=== PATIENT | male | born 1970 | race Caucasian/White ===

== ENCOUNTER 2021-11-07 11:20 | Inpatient (IN) ==
[2021-11-07] MEDS ORDERED: SODIUM CHLORIDE 0.9% 1000ML 1,000 ML IV SCH (12:15)
--- NOTE | 2021-11-07 12:18 | Emergency Department Note ---
History of Present Illness General Chief complaint: Leg Weakness, Bilateral Stated complaint: LEG WEAKNESS, FALL Time Seen by Provider: 11/07/21 12:02 History of Present Illness This is a 51-year-old male that presents to the emergency department via private vehicle with complaints of "leg weakness, fall". Patient notes a history of COPD, hypertension. The patient states that he recently returned from a trip to [place]. He notes that he then returned to work this past Wednesday. He states that he was quite active while at work and it was quite hot outside. He notes that he felt sore after finishing work. Then the next morning which was this past he felt very sore in his muscles. He was able to return to work yesterday and notes that he continued with soreness. He notes that he continued with also feeling some muscle weakness but more secondary to the soreness. Then today he returned to work and felt increasingly sore compared to yesterday and states that he even had difficulty ascending a simple step. He states that he fell while doing this and had trouble standing as he felt very weak overall. He denies any unilateral component to this. He notes that both arms and both legs feel quite weak. When he fell he also struck his head. He denies any speech trouble. No recent illness. No fevers. No nausea or vomiting. Patient questions if perhaps he could be dehydrated as it has been quite hot out recently and he has been sweating a lot. Patient denies any known cardiac history. In addition to hypertension and COPD he notes a surgical history for that of umbilical hernia and tonsillectomy. He notes allergies to strawberries and penicillin. Home Medications Medication Instructions Recorded Confirmed Type albuterol sulfate 90 mcg/actuation 2 puff INHALATION Q4 PRN 11/07/21 11/07/21 History aerosol inhaler budesonide-formoterol HFA 160 2 inh INHALATION BID 11/07/21 11/07/21 History mcg-4.5 mcg/actuation aerosol inhaler (Symbicort) bupropion HCl 150 mg 24 hr tablet, 150 mg PO DAILY 11/07/21 11/07/21 History extended release lisinopril 10 mg tablet 10 mg PO DAILY 11/07/21 11/07/21 History multivitamin 1 tab PO DAILY 11/07/21 11/07/21 History paroxetine HCl 40 mg tablet 40 mg PO DAILY 11/07/21 11/07/21 History tiotropium bromide 2.5 2 inh INHALATION DAILY 11/07/21 11/07/21 History mcg/actuation mist for inhalation (Spiriva Respimat) Allergies Allergy/AdvReac Type Severity Reaction Status Date / Time Penicillins Allergy Severe FACE AND Verified 11/07/21 15:06 WHOLE BODY SWELLED--NEEDED 2 DOSES OF EPIPEN strawberry Allergy Intermediate ITCHY RASH Verified 11/07/21 15:06 Past Med/Surg History Medical History (Updated 11/07/21 @ 15:14 by Lien Hollingsworth PA-C) COPD (chronic obstructive pulmonary disease) HTN (hypertension) Mood disorder Surgical History History of hernia surgery Hx of tonsillectomy Family History (Updated 11/07/21 @ 15:13 by Lien Hollingsworth PA-C) Mother Heart disease Father Cancer Sister Cancer Social History (Updated 11/07/21 @ 15:12 by Lien Hollingsworth PA-C) Smoking Status: Current every day smoker Tobacco Type: Cigarettes Cigarettes Per Day: 1ppd x 22 years; Hx Alcohol Use: Yes (2-3 beers daily) Hx Substance Use: 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) Feels Safe at Home: Yes Review of Systems A total of 10 systems reviewed and were otherwise negative Physical Exam Vital Signs Vital Signs - 24 hr 11/07/21 11:08 11/07/21 11:36 11/07/21 11:40 Temperature 37 C Temperature Source Oral Pulse Rate 80 78 83 Pulse Rate from SpO2 Sensor 77 83 Respiratory Rate 20 14 15 Blood Pressure 169/98 H Blood Pressure Mean 121 Pulse Oximetry 92 96 92 Oxygen Delivery Method Room Air Sepsis Recent Fever Within 48 Hours No Sepsis New/Unexplained Change in Mental Status No Sepsis Action Taken by Nursing No Action Required 11/07/21 11:50 11/07/21 12:00 11/07/21 12:10 Temperature Temperature Source Pulse Rate 78 78 80 Pulse Rate from SpO2 Sensor 78 79 77 Respiratory Rate 7 L 16 21 Blood Pressure Blood Pressure Mean Pulse Oximetry 94 93 96 Oxygen Delivery Method Sepsis Recent Fever Within 48 Hours Sepsis New/Unexplained Change in Mental Status Sepsis Action Taken by Nursing 11/07/21 12:12 06/17/22 12:20 11/07/21 12:30 Temperature Temperature Source Pulse Rate 75 87 Pulse Rate from SpO2 Sensor 76 88 Respiratory Rate 13 19 Blood Pressure Blood Pressure Mean Pulse Oximetry 94 95 94 Oxygen Delivery Method Room Air Sepsis Recent Fever Within 48 Hours Sepsis New/Unexplained Change in Mental Status Sepsis Action Taken by Nursing 11/07/21 12:40 11/07/21 12:50 11/07/21 13:00 Temperature Temperature Source Pulse Rate 86 82 75 Pulse Rate from SpO2 Sensor 82 74 Respiratory Rate 13 17 13 Blood Pressure Blood Pressure Mean Pulse Oximetry 95 96 Oxygen Delivery Method Sepsis Recent Fever Within 48 Hours Sepsis New/Unexplained Change in Mental Status Sepsis Action Taken by Nursing 11/07/21 13:10 11/07/21 13:20 11/07/21 13:30 Temperature Temperature Source Pulse Rate 74 86 83 Pulse Rate from SpO2 Sensor 74 84 80 Respiratory Rate 23 12 15 Blood Pressure Blood Pressure Mean Pulse Oximetry 97 96 95 Oxygen Delivery Method Sepsis Recent Fever Within 48 Hours Sepsis New/Unexplained Change in Mental Status Sepsis Action Taken by Nursing 11/07/21 13:42 11/07/21 13:50 11/07/21 14:00 Temperature Temperature Source Pulse Rate 78 77 75 Pulse Rate from SpO2 Sensor 78 77 76 Respiratory Rate 23 15 17 Blood Pressure Blood Pressure Mean Pulse Oximetry 97 96 92 Oxygen Delivery Method Sepsis Recent Fever Within 48 Hours Sepsis New/Unexplained Change in Mental Status Sepsis Action Taken by Nursing 11/07/21 14:10 11/07/21 14:20 11/07/21 14:30 Temperature Temperature Source Pulse Rate 78 77 80 Pulse Rate from SpO2 Sensor 80 77 79 Respiratory Rate 17 17 15 Blood Pressure Blood Pressure Mean Pulse Oximetry 92 91 95 Oxygen Delivery Method Sepsis Recent Fever Within 48 Hours Sepsis New/Unexplained Change in Mental Status Sepsis Action Taken by Nursing 11/07/21 14:40 Temperature Temperature Source Pulse Rate 80 Pulse Rate from SpO2 Sensor 79 Respiratory Rate 15 Blood Pressure Blood Pressure Mean Pulse Oximetry 95 Oxygen Delivery Method Sepsis Recent Fever Within 48 Hours Sepsis New/Unexplained Change in Mental Status Sepsis Action Taken by Nursing VITAL SIGNS - Vital signs and nursing notes were reviewed. Stable and afebrile. GENERAL - 51-year-old male appearing his stated age who is in no acute distress. Communicates well with provider and answers questions appropriately. SKIN - Without rashes. No meningeal or petechial rash. HEAD - NC/AT. EYES - PERRL with EOMI bilaterally. Sclera anicteric. EARS - No deformities of external structures noted on gross examination bilaterally. NOSE - Midline and without cyanosis. No epistaxis or purulent drainage noted. MOUTH/OROPHARYNX - Without perioral cyanosis. NECK - Neck with FROM. No nuchal rigidity. LUNGS - Chest wall symmetric without accessory muscle use, intercostals retractions, or central cyanosis. Normal vesicular breath sounds CTA B/L. No wheezes, rales, or rhonchi appreciated. CARDIAC - RRR with S1/S2. No murmur, rubs, or gallops appreciated. EXTREMITIES - No clubbing or peripheral cyanosis. +5/5 strength noted in UE/LE bilaterally. NEUROLOGIC - Cranial nerves II through XII grossly intact. PSYCH - A&Ox3 and cooperates fully with examiner. Pt is very pleasant and interacts well with examiner. Course Administered Medications Discontinued Medications Sodium Chloride (Nss 1000ml) 1,000 mls @ 500 mls/hr IV .Q2H EDWINA Stop: 11/07/21 14:14 Last Infusion: 11/07/21 15:30 Dose: 0 mls/hr Documented by: [id number] Admin: 11/07/21 12:39 Dose: 500 mls/hr Documented by: [id number] Medical Decision Making Laboratory Data Result diagrams: 11/07/21 11:33 11/07/21 11:33 Lab Results 11/07/21 11/07/21 11/07/21 Range/Units 11:33 11:33 11:33 WBC 7.27 (4.8-10.8) K/uL RBC 5.27 (4.7-6.1) M/uL Hgb 16.5 (14.0-18.0) g/dL Hct 48.9 (42-52) % MCV 92.8 (80-100) fL MCH 31.3 (25-34) pg MCHC 33.7 (32-36) g/dL RDW Std Deviation 47.3 H (36.4-46.3) fL RDW Coeff of Josh 14.0 (11.5-14.5) % Plt Count 244 (130-400) K/uL MPV 10.8 H (7.4-10.4) fL Immature Gran % (Auto) 0.3 % Neut % (Auto) 51.0 % Lymph % (Auto) 35.9 % [place] % (Auto) 10.2 % Eos % (Auto) 2.2 % Baso % (Auto) 0.4 % Neut # (Auto) 3.71 (1.4-6.5) K/uL Lymph # (Auto) 2.61 (1.2-3.4) K/uL [place] # (Auto) 0.74 H (0.11-0.59) K/uL Eos # (Auto) 0.16 (0-0.5) K/uL Baso # (Auto) 0.03 (0-0.2) K/uL Immature Gran # (Auto) 0.02 (0.00-0.02) K/uL PT 11.4 (9.0-12.0) Seconds INR 1.1 (0.9-1.1) APTT 29.1 (21.0-31.0) Seconds PTT Ratio 1.1 Sodium (136-145) mmol/L Potassium (3.5-5.1) mmol/L Chloride (98-107) mmol/L Carbon Dioxide (21-32) mmol/L Anion Gap (3-11) BUN (6-23) mg/dl Creatinine (0.6-1.4) mg/dl Est Cr Clr Drug Dosing ml/min Est GFR ( Amer) ml/min Est GFR (Non-Af Amer) ml/min BUN/Creatinine Ratio (10-20) Glucose (70-99(Fasting)) mg/dl Calcium (8.5-10.1) mg/dl Magnesium (1.7-2.4) mg/dl Total Bilirubin (0.2-1.0) mg/dl AST (13-39) U/L ALT (7-52) U/L Alkaline Phosphatase (34-104) U/L Total Creatine Kinase 1723 H (30-223) U/L Troponin I High Sens (0-20) pg/ml Total Protein (6.0-8.3) gm/dl Albumin (3.4-5.0) gm/dl Globulin (2.5-4.0) gm/dl Albumin/Globulin Ratio (0.9-2) TSH (0.300-4.500) uIu/ml Urine Color Urine Appearance (Clear) Urine pH (4.5-7.5) Ur Specific [place] (1.000-1.030) Urine Protein (Negative) Urine Glucose (UA) (Negative) Urine Ketones (Negative) Urine Blood (Negative) Urine Nitrite (Negative) Urine Bilirubin (Negative) Urine Urobilinogen (Negative) Ur Leukocyte Esterase (Negative) Urine WBC (Auto) (0-5) /hpf Urine RBC (Auto) (0-4) /hpf U Hyaline Cast (Auto) (0-5) /lpf U Epithel Cells (Auto) (0-5) /lpf Urine Bacteria (Auto) (Negative) Lyme Disease IgG Ab (Negative) Lyme Disease IgM Ab (Negative) SARS-CoV-2 (PCR) (Negative) Influenza Type A (PCR) (Neg) Influenza Type B (PCR) (Neg) RSV (RT-PCR) (Neg) 11/07/21 11/07/21 11/07/21 Range/Units 11:33 11:33 11:33 WBC (4.8-10.8) K/uL RBC (4.7-6.1) M/uL Hgb (14.0-18.0) g/dL Hct (42-52) % MCV (80-100) fL MCH (25-34) pg MCHC (32-36) g/dL RDW Std Deviation (36.4-46.3) fL RDW Coeff of Josh (11.5-14.5) % Plt Count (130-400) K/uL MPV (7.4-10.4) fL Immature Gran % (Auto) % Neut % (Auto) % Lymph % (Auto) % [place] % (Auto) % Eos % (Auto) % Baso % (Auto) % Neut # (Auto) (1.4-6.5) K/uL Lymph # (Auto) (1.2-3.4) K/uL [place] # (Auto) (0.11-0.59) K/uL Eos # (Auto) (0-0.5) K/uL Baso # (Auto) (0-0.2) K/uL Immature Gran # (Auto) (0.00-0.02) K/uL PT (9.0-12.0) Seconds INR (0.9-1.1) APTT (21.0-31.0) Seconds PTT Ratio Sodium 136 (136-145) mmol/L Potassium 3.8 (3.5-5.1) mmol/L Chloride 100 (98-107) mmol/L Carbon Dioxide 28 (21-32) mmol/L Anion Gap 8 (3-11) BUN 9 (6-23) mg/dl Creatinine 0.76 (0.6-1.4) mg/dl Est Cr Clr Drug Dosing 187.7 ml/min Est GFR ( Amer) 121.6 ml/min Est GFR (Non-Af Amer) 104.9 ml/min BUN/Creatinine Ratio 11.8 (10-20) Glucose 80 (70-99(Fasting)) mg/dl Calcium 9.0 (8.5-10.1) mg/dl Magnesium 2.0 (1.7-2.4) mg/dl Total Bilirubin 0.7 (0.2-1.0) mg/dl AST 55 H (13-39) U/L ALT 38 (7-52) U/L Alkaline Phosphatase 103 (34-104) U/L Total Creatine Kinase (30-223) U/L Troponin I High Sens 16.2 (0-20) pg/ml Total Protein 7.5 (6.0-8.3) gm/dl Albumin 4.0 (3.4-5.0) gm/dl Globulin 3.5 (2.5-4.0) gm/dl Albumin/Globulin Ratio 1.1 (0.9-2) TSH 1.259 (0.300-4.500) uIu/ml Urine Color Urine Appearance (Clear) Urine pH (4.5-7.5) Ur Specific [place] (1.000-1.030) Urine Protein (Negative) Urine Glucose (UA) (Negative) Urine Ketones (Negative) Urine Blood (Negative) Urine Nitrite (Negative) Urine Bilirubin (Negative) Urine Urobilinogen (Negative) Ur Leukocyte Esterase (Negative) Urine WBC (Auto) (0-5) /hpf Urine RBC (Auto) (0-4) /hpf U Hyaline Cast (Auto) (0-5) /lpf U Epithel Cells (Auto) (0-5) /lpf Urine Bacteria (Auto) (Negative) Lyme Disease IgG Ab Negative (Negative) Lyme Disease IgM Ab Negative (Negative) SARS-CoV-2 (PCR) (Negative) Influenza Type A (PCR) (Neg) Influenza Type B (PCR) (Neg) RSV (RT-PCR) (Neg) 11/07/21 11/07/21 Range/Units 12:16 13:10 WBC (4.8-10.8) K/uL RBC (4.7-6.1) M/uL Hgb (14.0-18.0) g/dL Hct (42-52) % MCV (80-100) fL MCH (25-34) pg MCHC (32-36) g/dL RDW Std Deviation (36.4-46.3) fL RDW Coeff of Josh (11.5-14.5) % Plt Count (130-400) K/uL MPV (7.4-10.4) fL Immature Gran % (Auto) % Neut % (Auto) % Lymph % (Auto) % [place] % (Auto) % Eos % (Auto) % Baso % (Auto) % Neut # (Auto) (1.4-6.5) K/uL Lymph # (Auto) (1.2-3.4) K/uL [place] # (Auto) (0.11-0.59) K/uL Eos # (Auto) (0-0.5) K/uL Baso # (Auto) (0-0.2) K/uL Immature Gran # (Auto) (0.00-0.02) K/uL PT (9.0-12.0) Seconds INR (0.9-1.1) APTT (21.0-31.0) Seconds PTT Ratio Sodium (136-145) mmol/L Potassium (3.5-5.1) mmol/L Chloride (98-107) mmol/L Carbon Dioxide (21-32) mmol/L Anion Gap (3-11) BUN (6-23) mg/dl Creatinine (0.6-1.4) mg/dl Est Cr Clr Drug Dosing ml/min Est GFR ( Amer) ml/min Est GFR (Non-Af Amer) ml/min BUN/Creatinine Ratio (10-20) Glucose (70-99(Fasting)) mg/dl Calcium (8.5-10.1) mg/dl Magnesium (1.7-2.4) mg/dl Total Bilirubin (0.2-1.0) mg/dl AST (13-39) U/L ALT (7-52) U/L Alkaline Phosphatase (34-104) U/L Total Creatine Kinase (30-223) U/L Troponin I High Sens (0-20) pg/ml Total Protein (6.0-8.3) gm/dl Albumin (3.4-5.0) gm/dl Globulin (2.5-4.0) gm/dl Albumin/Globulin Ratio (0.9-2) TSH (0.300-4.500) uIu/ml Urine Color Yellow Urine Appearance Clear (Clear) Urine pH 8.0 H (4.5-7.5) Ur Specific [place] 1.011 (1.000-1.030) Urine Protein 1+ H (Negative) Urine Glucose (UA) Negative (Negative) Urine Ketones Negative (Negative) Urine Blood Negative (Negative) Urine Nitrite Negative (Negative) Urine Bilirubin Negative (Negative) Urine Urobilinogen Negative (Negative) Ur Leukocyte Esterase Negative (Negative) Urine WBC (Auto) 0 (0-5) /hpf Urine RBC (Auto) 0-4 (0-4) /hpf U Hyaline Cast (Auto) 0 (0-5) /lpf U Epithel Cells (Auto) 0-5 (0-5) /lpf Urine Bacteria (Auto) Negative (Negative) Lyme Disease IgG Ab (Negative) Lyme Disease IgM Ab (Negative) SARS-CoV-2 (PCR) NEGATIVE (Negative) Influenza Type A (PCR) Negative (Neg) Influenza Type B (PCR) Negative (Neg) RSV (RT-PCR) Negative (Neg) Imaging Data Radiologist's Impression: Chest X-Ray 11/07/21 12:12 XR chest 1V portable CLINICAL HISTORY: weakness, fall TECHNIQUE: Single frontal radiograph of the chest was obtained. Comparison: None available at the time of this dictation. FINDINGS: Exam is limited by underpenetration. The cardiomediastinal silhouette is normal. The lungs are clear. There is blunting of the left costophrenic angle. IMPRESSION: Blunting of the left costophrenic angle may be artifactual due to underpenetration, or may represent a small pleural effusion. ACT 112: Negative or not required by law. Electronically signed by: Rafael Stone M.D. 11/07/2021 12:[address] 11/07/21 12:12 CT head/brain wo con CLINICAL HISTORY: weakness, fall, struck head COMPARISON STUDY: No previous studies for comparison. CT DOSE: 720.95 mGycm TECHNIQUE: Standard CT of the Brain was performed without IV contrast. A dose lowering technique was utilized adhering to the principles of ALARA. FINDINGS: Extraaxial space: There is no evidence for subdural hematoma. There are no extr a-axial fluid collections. Ventricles and cisterns: The ventricles are normal in size and configuration. There is no evidence for midline shift or mass effect. Parenchyma: There is no subarachnoid or intraparenchymal hemorrhage. There is no evidence for an acute infarct or cerebral edema. There is homogeneous attenuation of the brain parenchyma. There are no gross mass lesions. Osseous structures: There is no evidence for an acute fracture. The visualized paranasal sinuses are clear. The mastoid air cells are clear bilaterally. Soft tissues: There is no evidence for focal soft tissue swelling. IMPRESSION: 1. No acute intracerebral pathology. ACT 112: Negative or not required by law. Electronically signed by: Tony Mc M.D. 11/07/2021 1:46 PM [facility] Narrative Patient was seen and evaluated as above in room A03. Review was performed of nursing notes and vital signs. I did review pertinent previous visits and patient history. After obtaining a thorough history and physical examination the above work up was performed. Patient presents to us today for evaluation of diffuse extremity weakness that is bilateral with associated muscle soreness that has been ongoing since Wednesday. Patient clinically appears well and nontoxic. No deficits on examination. Options of care were discussed with the patient. IV access was established. Labs were drawn. He was hydrated with normal saline. There is no leukocytosis or concerning anemia. No emergent metabolic disturbance. I will note that there is elevation of the patient's AST at 55 with total CK at 1723. Troponin is within the normal range. TSH reveals euthyroid state. Urinalysis reveals 1+ protein. No bacteria. Patient's COVID test is negative. CT imaging of the head was obtained as the patient did fall and hit his head but this is negative. Chest x-ray also likely negative as well. Patient presentation concerning for that of mild rhabdomyolysis and with associated fatigue/muscle ache I do believe that further evaluation and management in the inpatient setting is warranted. Case discussed with case management service and the hospitalist service was notified. Please refer to further documentation regarding his stay. EKG reveals normal sinus rhythm at a rate of 73 bpm. Incomplete right bundle branch block noted. QTc 460. QRS 114. No ST elevation. No previous to compare. Case was discussed with the attending physician. An order was placed for continuous cardiac monitoring. The monitor shows a rate of 86 with sinus rhythm. GCS: 15 In the evaluation and treatment of this patient the following differential diagnoses were entertained: CVA, TIA, meningitis, encephalitis, ME, PE, rhabdomyolysis, Lyme, dehydration, among others Impression & Plan Rhabdomyolysis, Weakness, Fall, Muscle soreness Discharge Plan Visit Data Chief Complaint: Leg Weakness, Bilateral Stated Complaint: LEG WEAKNESS, FALL ED Provider: Suni Carranza ED Midlevel Provider: Denilson Dumont Discharge Problem: Rhabdomyolysis, Weakness, Fall, Muscle soreness Patient Disposition: Admitted As Inpatient Condition: Good Discharge Instructions Interventions: ED Discharge Assessment Last Done: 11/07/21 16:56
[2021-11-07 12:38] LABS: Basophils # (auto) 0.03 K/uL (0-0.2); Basophils % (auto) 0.4 %; Eosinophils # (auto) 0.16 K/uL (0-0.5); Eosinophils % (auto) 2.2 %; Hematocrit (blood only) 48.9 % (42-52); Hemoglobin 16.5 g/dL (14.0-18.0); Immature Granulocytes # (auto) 0.02 K/uL (0.00-0.02); Immature Granulocytes % (auto) 0.3 %; Lymphocytes # (auto) 2.61 K/uL (1.2-3.4); Lymphocytes % (auto) 35.9 %; Mean Corpuscular Hemoglobin 31.3 pg (25-34); Mean Corpuscular Hgb Conc 33.7 g/dL (32-36); Mean Corpuscular Volume 92.8 fL (80-100); Mean Platelet Volume 10.8 fL (7.4-10.4); Monocytes # (auto) 0.74 K/uL (0.11-0.59); Monocytes % (auto) 10.2 %; Neutrophils # (auto) 3.71 K/uL (1.4-6.5); Platelet Count 244 K/uL (130-400); RDW Standard Deviation 47.3 fL (36.4-46.3); Red Blood Count 5.27 M/uL (4.7-6.1); White Blood Count 7.27 K/uL (4.8-10.8)
[2021-11-07 12:50] LABS: INR 1.1 (0.9-1.1); Partial Thromboplastin Ratio 1.1; Partial Thromboplastin Time 29.1 Seconds (21.0-31.0); Prothrombin Time 11.4 Seconds (9.0-12.0)
--- NOTE | 2021-11-07 12:54 | XRay Report ---
XR chest 1V portable CLINICAL HISTORY: weakness, fall TECHNIQUE: Single frontal radiograph of the chest was obtained. Comparison: None available at the time of this dictation. FINDINGS: Exam is limited by underpenetration. The cardiomediastinal silhouette is normal. The lungs are clear. There is blunting of the left costophrenic angle. IMPRESSION: Blunting of the left costophrenic angle may be artifactual due to underpenetration, or may represent a small pleural effusion. ACT 112: Negative or not required by law. Electronically signed by: Rafael Stone M.D. 11/07/2021 12:52 PM
[2021-11-07 12:56] LABS: Albumin Globulin Ratio 1.1 (0.9-2); BUN Creatinine Ratio 11.8 (10-20); Bilirubin,Total 0.7 mg/dl (0.2-1.0); Creatinine Clr Calc Pharmacy 187.7 ml/min; Est GFR (African American) 121.6 ml/min; Est GFR (Non-African American) 104.9 ml/min; Globulin 3.5 gm/dl (2.5-4.0); Potassium 3.8 mmol/L (3.5-5.1); Total Protein 7.5 gm/dl (6.0-8.3)
[2021-11-07 12:58] LABS: Troponin I High Sensitivity 16.2 pg/ml (0-20)
[2021-11-07 13:30] LABS: Influenza A virus by PCR Negative (Neg); Influenza B virus by PCR Negative (Neg); RSV by PCR Negative (Neg); SARS CoV2 RNA(COVID-19) InHosp NEGATIVE (Negative)
[2021-11-07 13:42] LABS: Appearance Urine Clear (Clear); Bacteria Urine Automated Negative (Negative); Bilirubin Urine Negative (Negative); Blood Urine Negative (Negative); Cast Urine Automated 0 /lpf (0-5); Color Urine Yellow; Epithelial Cell Urine Auto 0-5 /lpf (0-5); Glucose Urine UA Negative (Negative); Ketones Urine Negative (Negative); Leukocyte Esterase Urine Negative (Negative); Nitrite Urine Negative (Negative); RBC Urine Automated 0-4 /hpf (0-4); Specific Gravity Urine 1.011 (1.000-1.030); Urobilinogen Urine Negative (Negative); WBC Urine Automated 0 /hpf (0-5)
--- NOTE | 2021-11-07 13:47 | CT Scan Report ---
CT head/brain wo con CLINICAL HISTORY: weakness, fall, struck head COMPARISON STUDY: No previous studies for comparison. CT DOSE: 720.95 mGycm TECHNIQUE: Standard CT of the Brain was performed without IV contrast. A dose lowering technique was utilized adhering to the principles of ALARA. FINDINGS: Extraaxial space: There is no evidence for subdural hematoma. There are no extra-axial fluid collecti ons. Ventricles and cisterns: The ventricles are normal in size and configuration. There is no evidence fo r midline shift or mass effect. Parenchyma: There is no subarachnoid or intraparenchymal hemorrhage. There is no evidence for an acut e infarct or cerebral edema. There is homogeneous attenuation of the brain parenchyma. There are no g ross mass lesions. Osseous structures: There is no evidence for an acute fracture. The visualized paranasal sinuses are clear. The mastoid air cells are clear bilaterally. Soft tissues: There is no evidence for focal soft tissue swelling. IMPRESSION: 1. No acute intracerebral pathology. ACT 112: Negative or not required by law. Electronically signed by: Tony Mc M.D. 11/07/2021 1:46 PM
[2021-11-07 13:50] LABS: Protein Urine 1+ (Negative)
[2021-11-07 14:13] LABS: Lyme Ab IgG w/WB Rflx Negative (Negative); Lyme Ab IgM w/WB Rflx Negative (Negative)
--- NOTE | 2021-11-07 14:42 | Electrocardiogram Report ---
Test Reason : Blood Pressure : / mmHG Vent. Rate : 073 BPM Atrial Rate : 073 BPM P-R Int : 118 ms QRS Dur : 114 ms QT Int : 418 ms P-R-T Axes : 000 -13 007 degrees QTc Int : 460 ms Normal sinus rhythm Incomplete right bundle branch block Lateral infarct , age undetermined Abnormal ECG No previous ECGs available Confirmed by Umesh Nieves ([id number] on 11/07/2021 2:41:58 PM Referred By: REFERRED SELF Confirmed By:Cody Nieves
--- NOTE | 2021-11-07 15:16 | History & Physical Report ---
Date of Service November 07, 2021 Assessment & Plan (1) Rhabdomyolysis: Plan: Patient is 51 y/o M with PMH COPD, mood disorder, HTN presented to ER with c/o myalgias, muscle weakness past couple of days after returning to work. Today fell In ER vitals stable CT Head unremarkable In ER given IVF Continue IVF CBC, BMP, CPK in am (2) HTN (hypertension): Plan: Stable Continue lisinopril (3) COPD (chronic obstructive pulmonary disease): Plan: No signs exacerbation Continue home inhalers (4) Mood disorder: Plan: Stable Continue home meds DVT Prophylaxis SCDs Full Code as per discussion with pt Follows with Ish Riojas PA-C for routine care Pt was seen and care coordinated with Dr Sandra. See addendum History of Present Illness Chief Complaint: Myalgias Primary Care Provider: Ish Riojas PA-C Patient is 51 y/o M with PMH COPD, mood disorder, HTN presented to ER with c/o myalgias. Was on vacation in [place] and came back to work past couple of days. Works in restaurant. Past couple of days very hot and busy and started having diffuse myalgias, muscle weakness. Today increased weakness and fell hitting head. Denies LOC. Denies fever/chills, diaphoresis, N/V/D/C, AL, dizziness, syncope, vision changes, neck pain, CP, SOB, orthopnea, palpitations, cough, sore throat, choking, otalgia, rhinorrhea, abdominal pain, paresthesias,extremity edema, rashes, urinary symptoms. In ER CPK elevated and was given IVF. Allergies Allergy/AdvReac Type Severity Reaction Status Date / Time Penicillins Allergy Severe FACE AND Verified 11/07/21 15:06 WHOLE BODY SWELLED--NEEDED 2 DOSES OF EPIPEN strawberry Allergy Intermediate ITCHY RASH Verified 11/07/21 15:06 Home Medications Medication Instructions Recorded Confirmed Type albuterol sulfate 90 mcg/actuation 2 puff INHALATION Q4 PRN 11/07/21 11/07/21 History aerosol inhaler budesonide-formoterol HFA 160 2 inh INHALATION BID 11/07/21 11/07/21 History mcg-4.5 mcg/actuation aerosol inhaler (Symbicort) bupropion HCl 150 mg 24 hr tablet, 150 mg PO DAILY 11/07/21 11/07/21 History extended release lisinopril 10 mg tablet 10 mg PO DAILY 11/07/21 11/07/21 History multivitamin 1 tab PO DAILY 11/07/21 11/07/21 History paroxetine HCl 40 mg tablet 40 mg PO DAILY 11/07/21 11/07/21 History tiotropium bromide 2.5 2 inh INHALATION DAILY 11/07/21 11/07/21 History mcg/actuation mist for inhalation (Spiriva Respimat) Past Med/Surg History Medical History (Updated 11/07/21 @ 15:14 by Lien Hollingsworth PA-C) COPD (chronic obstructive pulmonary disease) HTN (hypertension) Mood disorder Surgical History History of hernia surgery Hx of tonsillectomy Family History (Updated 11/07/21 @ 15:13 by Lien Hollingsworth PA-C) Mother Heart disease Father Cancer Sister Cancer Social History (Updated 11/07/21 @ 15:12 by Lien Hollingsworth PA-C) Smoking Status: Current every day smoker Tobacco Type: Cigarettes Cigarettes Per Day: 1ppd x 22 years; Hx Alcohol Use: Yes (2-3 beers daily) Hx Substance Use: 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) Feels Safe at Home: Yes Review of Systems Review of Systems: All systems reviewed & are unremarkable except as noted in HPI & below Physical Exam Physical Exam: PE per Dr Sandra Results & Data Results & Data ([facility]) Vital Signs (Past 12 Hours) Vital Signs Temp Pulse Resp BP Pulse Ox 11/07/21 14:40 80 15 95 11/07/21 14:30 80 15 95 11/07/21 14:20 77 17 91 11/07/21 14:10 78 17 92 11/07/21 14:00 75 17 92 11/07/21 13:50 77 15 96 11/07/21 13:42 78 23 97 11/07/21 13:30 83 15 95 11/07/21 13:20 86 12 96 11/07/21 13:10 74 23 97 11/07/21 13:00 75 13 96 11/07/21 12:50 82 17 95 11/07/21 12:40 86 13 11/07/21 12:30 87 19 94 11/07/21 12:20 75 13 95 11/07/21 12:12 94 11/07/21 12:10 80 21 96 11/07/21 12:00 78 16 93 11/07/21 11:50 78 7 L 94 11/07/21 11:40 83 15 92 11/07/21 11:36 78 14 96 11/07/21 11:08 37 C 80 20 169/98 H 92 Laboratory Results Short CBC 11/07/21 Range/Units 11:33 WBC 7.27 (4.8-10.8) K/uL Hgb 16.5 (14.0-18.0) g/dL Hct 48.9 (42-52) % Plt Count 244 (130-400) K/uL BMP 11/07/21 11:33 Sodium 136 Potassium 3.8 Chloride 100 Carbon Dioxide 28 BUN 9 Creatinine 0.76 Glucose 80 Calcium 9.0 Cardiac Enzymes 11/07/21 Range/Units 11:33 Total Creatine Kinase 1723 H (30-223) U/L Liver Function 11/07/21 Range/Units 11:33 Total Bilirubin 0.7 (0.2-1.0) mg/dl AST 55 H (13-39) U/L ALT 38 (7-52) U/L Alkaline Phosphatase 103 (34-104) U/L Albumin 4.0 (3.4-5.0) gm/dl Urine 11/07/21 Range/Units 13:10 Urine Color Yellow Urine Appearance Clear (Clear) Urine pH 8.0 H (4.5-7.5) Ur Specific [place] 1.011 (1.000-1.030) Urine Protein 1+ H (Negative) Urine Glucose (UA) Negative (Negative) Diagnostic Findings Chest X-Ray 11/07/21 12:12 XR chest 1V portable CLINICAL HISTORY: weakness, fall TECHNIQUE: Single frontal radiograph of the chest was obtained. Comparison: None available at the time of this dictation. FINDINGS: Exam is limited by underpenetration. The cardiomediastinal silhouette is normal. The lungs are clear. There is blunting of the left costophrenic angle. IMPRESSION: Blunting of the left costophrenic angle may be artifactual due to underpenetration, or may represent a small pleural effusion. ACT 112: Negative or not required by law. Electronically signed by: Rafael Stone M.D. 11/07/2021 12:[address] 11/07/21 12:12 CT head/brain wo con CLINICAL HISTORY: weakness, fall, struck head COMPARISON STUDY: No previous studies for comparison. CT DOSE: 720.95 mGycm TECHNIQUE: Standard CT of the Brain was performed without IV contrast. A dose lowering technique was utilized adhering to the principles of ALARA. FINDINGS: Extraaxial space: There is no evidence for subdural hematoma. There are no extra-axial fluid collections. Ventricles and cisterns: The ventricles are normal in size and configuration. There is no evidence for midline shift or mass effect. Parenchyma: There is no subarachnoid or intraparenchymal hemorrhage. There is no evidence for an acute infarct or cerebral edema. There is homogeneous attenuation of the brain parenchyma. There are no gross mass lesions. Osseous structures: There is no evidence for an acute fracture. The visualized paranasal sinuses are clear. The mastoid air cells are clear bilaterally. Soft tissues: There is no evidence for focal soft tissue swelling. IMPRESSION: 1. No acute intracerebral pathology. ACT 112: Negative or not required by law. Electronically signed by: Tony Mc M.D. 11/07/2021 1:46 PM Supervising Physician Co-Signing Physician Notes History and physical exam performed by me. History notable for 51-year-old man with COPD, cigarette smoker, hypertension who presents with generalized muscle aches for the past 2 days after coming back from vacation in [place] and fall today without loss of consciousness. On physical exam General: Obese, no acute distress and not ill appearing Eyes: PERRL, conjunctivae normal, not pale, anicteric sclerae, EOM intact bilaterally ENMT: External ear and nose normal, oropharynx normal Neck: Normal visual inspection, no tracheal deviation, no swelling noted Respiratory: Normal respiratory effort, no respiratory distress, lungs clear to auscultation, no crackles and no wheezes Cardiovascular: RRR S1 S2 Gastrointestinal (Abdomen): Abdomen is not distended, soft, non-tender to palpation, no guarding, no palpable hepatosplenomegaly, normal bowel sounds Musculoskeletal: +pedal edema, varicose veins Neurologic: Alert and oriented x 3, No focal weakness, sensation grossly intact Psychiatric: Alert and oriented x 3, euthymic affect Labs only notable for creatinine kinase of [address] did not show any acute findings Rhabdomyolysis Fall Continue IVF Monitor CK in AM Counseled about quitting smoking Continue home meds Agree with other plans as detailed by Lien Hollingsworth PA-C
[2021-11-07] MEDS ORDERED: ALBUTEROL HFA 8 GM INHALER INH PRN (17:47)
[2021-11-07] MEDS ORDERED: POLYETHYLENE (MIRALAX) 17 GM PACK PO PRN (17:47)
[2021-11-07] MEDS: SODIUM CHLORIDE 0.9% 1000ML 1,000 ML IV SCH (18:50)
[2021-11-08] MEDS: SODIUM CHLORIDE 0.9% 1000ML 1,000 ML IV SCH (01:37)
[2021-11-08] MEDS: ACETAMINOPHEN 325 MG TAB PO PRN ×2 (05:14→19:53)
[2021-11-08 07:23] LABS: Hematocrit (blood only) 48.7 % (42-52); Hemoglobin 16.1 g/dL (14.0-18.0); Mean Corpuscular Hemoglobin 31.4 pg (25-34); Mean Corpuscular Hgb Conc 33.1 g/dL (32-36); Mean Corpuscular Volume 95.1 fL (80-100); Mean Platelet Volume 10.9 fL (7.4-10.4); Platelet Count 221 K/uL (130-400); RDW Coefficient of Variation 13.9 % (11.5-14.5); RDW Standard Deviation 48.9 fL (36.4-46.3); Red Blood Count 5.12 M/uL (4.7-6.1); White Blood Count 7.37 K/uL (4.8-10.8)
[2021-11-08 07:39] LABS: BUN Creatinine Ratio 14.5 (10-20); Calcium 8.2 mg/dl (8.5-10.1); Creatinine Clr Calc Pharmacy 187.3 ml/min; Est GFR (African American) 121.6 ml/min; Est GFR (Non-African American) 104.9 ml/min; Potassium 4.1 mmol/L (3.5-5.1)
[2021-11-08] MEDS: PARoxetine HCL 20 MG TAB PO SCH (07:48)
[2021-11-08] MEDS: MULTIVITAMIN TAB PO SCH (07:48)
[2021-11-08] MEDS: buPROPion XL 150 MG TABCR PO SCH (07:49)
[2021-11-08] MEDS: UMECLIDINIUM BROMIDE 62.5MCG/BLISTER 7 PUFFS/INHALER INH SCH (07:49)
[2021-11-08] MEDS: FLUTICASONE/VILANTEROL 100/25MCG 14 PUFFS/INHALER INH SCH (07:49)
[2021-11-08] MEDS: lisinopril 10 MG TAB PO SCH (07:50)
[2021-11-08] MEDS ORDERED: oxyCODONE/ACETAMINOPHEN 5mg/325mg TAB PO STA (08:20)
[2021-11-08] MEDS ORDERED: SODIUM CHLORIDE 0.9% 1000ML 1,000 ML IV SCH (09:30)
--- NOTE | 2021-11-08 15:15 | Hospitalist Progress Note ---
Date of Service November 08, 2021 Assessment & Plan (1) Rhabdomyolysis: Plan: 51 y/o M with PMH of COPD, mood disorder, HTN presented to ER 11/07 with c/o myalgias. 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 On the day of arrival, he fell hitting head. Pt denies LOC, drug use. He is being managed for the following: (1) Rhabdomyolysis: At presentation, vitals stable Admitting CT Head and CXR w/ no acute findings. CPK 1723 at admission, trend, c/w ivf. Pt still w/ muscle pain, reports somewhat stable/minimal improvement. watch for volume overload. Get UDS, f/u (2) HTN (hypertension): Plan: Running high, could be IVF induced vs acute stress from muscle pain. Continue lisinopril, prn hydralazine, one dose of amlodipine, monitor for scheduled new BP meds requirement. (3) COPD (chronic obstructive pulmonary disease): Plan: No signs exacerbation Continue home inhalers (4) Mood disorder: Plan: Stable Continue home meds DVT Prophylaxis SCDs Full Code Follows with Ish Riojas PA-C for routine care Admission and Anticipated Discharge Date Admission Date: November 07, 2021 Subjective Patient seen and examined at bedside as a follow-up of rhabdomyolysis and uncontrolled hypertension. Patient was lying in bed, on room air, NAD, no new acute events overnight. Patient reports eating okay. Patient reports feeling weak and having diffuse muscle pain. Patient denies headache or dizziness or chest pain or palpitation or acute changes in bowel or bladder habits lately. Physical Exam Physical Exam: GENERAL: Alert and oriented x3. NAD, on RA. Morbidly obese. HEENT: No pallor, no icterus. Pupils equal, round and reactive to light. Oral mucosa moist. NECK: No JVD, no neck masses. HEART: S1 and S2 heard. Regular rate and rhythm. No murmur, no gallop. RESPIRATORY SYSTEM: Normal AP diameter. No accessory muscle use. No wheezing, no crackles. ABDOMEN: Soft, bowel sounds present, nontender, no distention. CENTRAL NERVOUS SYSTEM: No facial droop. Speech is clear. Obeys simple commands. Moves extremities. EXTREMITIES: trace ble edema, BLE chronic skin changes, no erythema seen. Results & Data Results & Data ([facility]) Vital Signs (Past 12 Hours) Vital Signs Temp Pulse Resp BP Pulse Ox 11/08/21 07:14 36.3 C L 67 22 180/97 H 95
[2021-11-08] MEDS ORDERED: amLODIPine BESYLATE 5 MG TAB PO ONE (15:30)
[2021-11-08] MEDS: ONDANSETRON INJ 2 MG/ML 2 ML VIAL IV PRN ×2 (16:12→22:34)
[2021-11-08 17:22] LABS: Amphetamines+Metham, Urine Neg (Neg); Barbiturates, Urine Neg (Neg); Benzodiazepine, Urine Neg (Neg); Cocaine, Urine Neg (Neg); MDMA (Ecstacy), Urine Neg (Neg); Methadone, Urine Neg (Neg); Opiate, Urine Neg (Neg); Phencyclidine, Urine Neg (Neg)
[2021-11-08] MEDS ORDERED: MELATONIN 3 MG TAB PO ONE (19:50)
[2021-11-08] MEDS: MELATONIN 3 MG TAB PO SCH (19:53)
[2021-11-08] MEDS ORDERED: oxyCODONE HCL IR 5 MG TAB (IMMEDIATE RELEASE) PO STA (21:20)
[2021-11-08] MEDS ORDERED: ALBUT/IPRATROP 3MG/0.5MG NEB 3 ML VIAL NEB STA (21:45)
[2021-11-08] MEDS: hydrALAZINE HCL 20 MG/ML VIAL IV PRN (21:50)
[2021-11-09] MEDS: hydrALAZINE HCL 20 MG/ML VIAL IV PRN (06:00)
[2021-11-09] MEDS: ONDANSETRON INJ 2 MG/ML 2 ML VIAL IV PRN ×2 (06:00→15:01)
[2021-11-09 06:13] LABS: Hematocrit (blood only) 49.5 % (42-52); Hemoglobin 16.1 g/dL (14.0-18.0); Mean Corpuscular Hemoglobin 30.4 pg (25-34); Mean Corpuscular Hgb Conc 32.5 g/dL (32-36); Mean Corpuscular Volume 93.6 fL (80-100); Mean Platelet Volume 10.6 fL (7.4-10.4); Platelet Count 247 K/uL (130-400); RDW Coefficient of Variation 13.8 % (11.5-14.5); RDW Standard Deviation 47.5 fL (36.4-46.3); Red Blood Count 5.29 M/uL (4.7-6.1); White Blood Count 9.81 K/uL (4.8-10.8)
[2021-11-09] MEDS ORDERED: MoRPHine SULFATE 4 MG/ML 1 ML CARP\\VIAL IV STA ×2 (06:16→20:30)
[2021-11-09 06:36] LABS: Potassium 4.1 mmol/L (3.5-5.1)
[2021-11-09 06:37] LABS: BUN Creatinine Ratio 9.1 (10-20); Calcium 8.8 mg/dl (8.5-10.1); Creatinine Clr Calc Pharmacy 215.7 ml/min; Est GFR (African American) 128.8 ml/min; Est GFR (Non-African American) 111.2 ml/min; Magnesium 1.9 mg/dl (1.7-2.4); Phosphorus 3.7 mg/dl (2.5-4.9)
[2021-11-09] MEDS: UMECLIDINIUM BROMIDE 62.5MCG/BLISTER 7 PUFFS/INHALER INH SCH (07:35)
[2021-11-09] MEDS: MULTIVITAMIN TAB PO SCH (07:35)
[2021-11-09] MEDS: buPROPion XL 150 MG TABCR PO SCH (07:35)
[2021-11-09] MEDS: lisinopril 10 MG TAB PO SCH (07:35)
[2021-11-09] MEDS: PARoxetine HCL 20 MG TAB PO SCH (07:35)
[2021-11-09] MEDS: FLUTICASONE/VILANTEROL 100/25MCG 14 PUFFS/INHALER INH SCH (07:36)
[2021-11-09] MEDS: amLODIPine BESYLATE 5 MG TAB PO SCH (10:04)
[2021-11-09] MEDS: ALBUT/IPRATROP 3MG/0.5MG NEB 3 ML VIAL NEB PRN ×2 (16:21→19:14)
[2021-11-09] MEDS ORDERED: SODIUM CHLORIDE 0.9% 1000ML 1,000 ML IV SCH (16:30)
--- NOTE | 2021-11-09 16:35 | Hospitalist Progress Note ---
Date of Service November 09, 2021 Assessment & Plan (1) Rhabdomyolysis: Plan: 51 y/o M with PMH of COPD, mood disorder, HTN presented to ER 11/07 with c/o myalgias. 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 On the day of arrival, he fell hitting head. Pt denies LOC, drug use. He is being managed for the following: (1) Rhabdomyolysis: At presentation, vitals stable Admitting CT Head and CXR w/ no acute findings. CPK 1723 at admission, trended down, s/p ivf. UDS 11/08, negative. Pt still w/ muscle pain, reports somewhat stable/minimal improvement. PT/OT. ? placement. Pt urinating ok, eating OK per RN (2) HTN (hypertension): Plan: Running high, could be IVF induced vs acute stress from muscle pain. Continue lisinopril, prn hydralazine, starting him on amlodipine 11/08, titrate BP meds. (3) COPD (chronic obstructive pulmonary disease): Plan: No signs exacerbation Continue home inhalers (4) Mood disorder: Plan: Stable Continue home meds DVT Prophylaxis SCDs Full Code Follows with Ish Riojas PA-C for routine care PT/OT, CM to assist w/ DC planning. Admission and Anticipated Discharge Date Admission Date: November 07, 2021 Subjective Patient seen and examined at bedside as a follow-up of rhabdomyolysis and uncontrolled hypertension. Patient was lying in bed, on room air, NAD, no new acute events overnight. Per RN, Patient eating okay. Patient reports feeling weak ongoing and having muscle pain dimitri lower belly and low back. Patient denies headache or dizziness or chest pain or palpitation or acute changes in bowel or bladder habits lately. Pt sob during the day but lungs clear and saturation 100% on RA, will get CXR & EKG. Physical Exam Physical Exam: GENERAL: Alert and oriented x3. NAD, on RA. Morbidly obese. HEENT: No pallor, no icterus. Pupils equal, round and reactive to light. Oral mucosa moist. NECK: No JVD, no neck masses. HEART: S1 and S2 heard. Regular rate and rhythm. No murmur, no gallop. RESPIRATORY SYSTEM: Normal AP diameter. No accessory muscle use. No wheezing, no crackles. ABDOMEN: Soft, bowel sounds present, nontender, no distention. CENTRAL NERVOUS SYSTEM: No facial droop. Speech is clear. Obeys simple commands. Moves extremities. weak face worker EXTREMITIES: trace ble edema, BLE chronic skin changes, no erythema seen. Results & Data Results & Data ([facility]) Vital Signs (Past 12 Hours) Vital Signs Temp Pulse Resp BP Pulse Ox 11/09/21 16:21 67 22 100 11/09/21 16:06 36.5 C 72 18 172/93 H 94 11/09/21 12:16 157/76 H 11/09/21 07:10 37.0 C 70 18 168/90 H 94 11/09/21 05:54 66 188/78 H 95
[2021-11-09] MEDS: ACETAMINOPHEN 325 MG TAB PO PRN ×2 (17:35→23:34)
--- NOTE | 2021-11-09 18:03 | XRay Report ---
XR chest 1V portable CLINICAL HISTORY: Shortness of breath. Follow-up possible left pleural effusion. COMPARISON STUDY: 11/07/2021 TECHNIQUE: 1 view of the chest FINDINGS: Single frontal view of the chest demonstrates the cardiomediastinal silhouette to be within normal li mits. The lungs are clear of alveolar opacities. There is again minimal blunting of left costophrenic angle suspicious for small left pleural effusion. There is no evidence for vascular congestion. Ther e is no acute osseous pathology. IMPRESSION: 1. There is again blunting left costophrenic angle suspicious for small left pleural effusion. PA and lateral radiographs would be the study of choice for further evaluation. ACT 112: Negative or not required by law. Electronically signed by: Tony Mc M.D. 11/09/2021 6:02 PM
--- NOTE | 2021-11-09 18:51 | Communication Note ---
Date of Service: November 09, 2021 Paged by RN for worsening general status of the patient late afternoon. Evaluated the patient by myself at bedside, comfortable on room air, vital signs stable. Lungs clear to auscultation. Heart and abdominal exam normal. Patient just had received treatment for breathing. Patient does get breathing treatment at home as well, patient has COPD at baseline. On examination no wheezing or crackles appreciated. Patient denied any chest pain or upper belly discomfort or left shoulder discomfort or jaw discomfort. Patient does have generalized weakness and generalized muscle pain likely from rhabdomyolysis which appears to be around the same as he presented to me initially. Morning labs were normal including electrolytes. Patient maintains good saturation on room air. Chest x-ray repeated, no progression from prior upon comparison. EKG repeated, appears to be similar. Voltage criteria has improved. Troponin repeated and negative. We will continue to monitor in the current status. Fall precaution. Patient to move out of the bed only with supervision.
[2021-11-09] MEDS: MELATONIN 3 MG TAB PO SCH (21:06)
[2021-11-09 22:01] LABS: Troponin I High Sensitivity 18.6 pg/ml (0-20)
[2021-11-09 22:03] LABS: Albumin Globulin Ratio 1.1 (0.9-2); Albumin Level 3.8 gm/dl (3.4-5.0); Bilirubin,Total 0.5 mg/dl (0.2-1.0); Calcium 8.9 mg/dl (8.5-10.1); Creatinine Clr Calc Pharmacy 189.8 ml/min; Est GFR (African American) 122.2 ml/min; Est GFR (Non-African American) 105.5 ml/min; Globulin 3.4 gm/dl (2.5-4.0); Magnesium 1.7 mg/dl (1.7-2.4); Potassium 3.9 mmol/L (3.5-5.1); Total Protein 7.2 gm/dl (6.0-8.3)
[2021-11-10] MEDS ORDERED: MAGNESIUM SULFATE / D5W 1 GM/100 ML BAG IV ONE (00:09)
[2021-11-10] MEDS ORDERED: SODIUM CHLORIDE 0.9% 500 ML IV SCH (00:15)
[2021-11-10] MEDS: ONDANSETRON INJ 2 MG/ML 2 ML VIAL IV PRN (00:58)
[2021-11-10] MEDS: MoRPHine SULFATE 4 MG/ML 1 ML CARP\\VIAL IV PRN ×6 (01:16→22:24)
[2021-11-10] MEDS: amLODIPine BESYLATE 5 MG TAB PO SCH (07:20)
[2021-11-10] MEDS: lisinopril 10 MG TAB PO SCH (07:21)
[2021-11-10 07:48] LABS: Hematocrit (blood only) 50.4 % (42-52); Mean Corpuscular Hemoglobin 31.4 pg (25-34); Mean Corpuscular Hgb Conc 33.7 g/dL (32-36); Mean Platelet Volume 10.7 fL (7.4-10.4); Platelet Count 269 K/uL (130-400); RDW Coefficient of Variation 13.9 % (11.5-14.5); RDW Standard Deviation 46.9 fL (36.4-46.3); Red Blood Count 5.42 M/uL (4.7-6.1); White Blood Count 9.28 K/uL (4.8-10.8)
[2021-11-10 08:36] LABS: BUN Creatinine Ratio 8.2 (10-20); Calcium 9.2 mg/dl (8.5-10.1); Est GFR (African American) 123.6 ml/min; Est GFR (Non-African American) 106.6 ml/min; Phosphorus 4.7 mg/dl (2.5-4.9); Potassium 4.1 mmol/L (3.5-5.1)
[2021-11-10 08:37] LABS: Folate (Folic Acid) 20.35 ng/ml (>5.38)
[2021-11-10] MEDS ORDERED: hydroCHLOROthiazide 25 MG TAB PO SCH (09:00)
[2021-11-10] MEDS: SODIUM CHLORIDE 0.9% 1000ML 1,000 ML IV SCH ×2 (09:16→21:26)
[2021-11-10] MEDS: PARoxetine HCL 20 MG TAB PO SCH (09:19)
[2021-11-10] MEDS: MULTIVITAMIN TAB PO SCH (09:20)
[2021-11-10] MEDS: buPROPion XL 150 MG TABCR PO SCH (09:20)
[2021-11-10] MEDS: FLUTICASONE/VILANTEROL 100/25MCG 14 PUFFS/INHALER INH SCH (09:21)
[2021-11-10] MEDS: UMECLIDINIUM BROMIDE 62.5MCG/BLISTER 7 PUFFS/INHALER INH SCH (09:21)
[2021-11-10] MEDS: hydrALAZINE HCL 20 MG/ML VIAL IV PRN ×2 (10:56→19:59)
--- NOTE | 2021-11-10 11:29 | Neurology Consultation ---
Date of Consultation November 10, 2021 Assessment & Plan (1) Rhabdomyolysis: 1. sudden onset of muscle pain and weakness 2. muscle biopsy- consult general surgery 3. trichinosis lab pending 4. CPK - still elevated 5. PT/OT for discharge needs will likely need rehab after care 6. rheumatology - discuss labs that may be helpful for diagnosis. 7. 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 but basic vitamin levels thyroid studies etc. have all been unremarkable and a Lyme titer is negative. Trichinosis titers pending but actually that would be a most unusual diagnosis to present this acutely without any other issues Currently he is areflexic his toes are downgoing he has significant proximal lower and upper extremity weakness, mild to moderate distal weakness which is symmetrical, calf tenderness, and subjective paresthesias of his hands and feet with a little loss of vibratory sense distally. Cranial nerves are intact. Neck flexor strength is reasonably good This appears to be an acute myositis but I cannot exclude a neuro myopathic process and diagnostically we are extremely limited here at [facility]. We cannot do an EMG inpatient and while I think he needs an acute muscle biopsy I am not sure the tissue will be processed in any reasonable interval of time We are stuck with an empiric trial of steroids without a diagnosis and I think in an ideal world this man should be transferred to a tertiary center, electrodiagnostic study should be done, he should have a muscle biopsy done with rapid processing of the tissue to screen for inflammatory process and he may even need spinal fluid analysis and imaging studies although clinically I do not see anything at this point to suggest a primary central nervous system issue We are therefore suggesting that request for transfer to [facility] be made and that he is respiratory function begin to be monitored with negative inspiratory forces and he probably ought to have an echocardiographic study to be sure that there is not an underlying myocarditis with a cardiomyopathy Elvis Pagan MD The above note was generated utilizing voice recognition technology and may have spelling errors punctuation errors, pronoun usage errors and syntax errors History of Present Illness Reason for Consultation: bilateral extremity weakness Requesting Physician: Jean Paul Laird MD Attending Physician: Jean Paul Laird MD History of Present Illness Ignacio is a 51 year old male with PMH -COPD, mood disorder, HTN presented to ER with c/o myalgias. He was on vacation in [place] and came back to work past couple of days. 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 His weakness increased and fell hitting head. He does not remember getting bit by any thing on vacation or any exposures he is aware of. He has alot of anxiety not knowing what is going on. He is a ppd smoker, 3-4 cans of EtOH per night, no other drugs. He never had anything like this before no new medications no family history of muscle disease. He is baseline SOB due to his COPD. He is not unable to move his legs and he feels he is weak all over and his toes and fingers are now numb. Allergies Allergy/AdvReac Type Severity Reaction Status Date / Time Penicillins Allergy Severe FACE AND Verified 11/07/21 15:06 WHOLE BODY SWELLED--NEEDED 2 DOSES OF EPIPEN strawberry Allergy Intermediate ITCHY RASH Verified 11/07/21 15:06 Home Medications Medication Instructions Recorded Confirmed Type albuterol sulfate 90 mcg/actuation 2 puff INHALATION Q4 PRN 11/07/21 11/07/21 History aerosol inhaler budesonide-formoterol HFA 160 2 inh INHALATION BID 11/07/21 11/07/21 History mcg-4.5 mcg/actuation aerosol inhaler (Symbicort) bupropion HCl 150 mg 24 hr tablet, 150 mg PO DAILY 11/07/21 11/07/21 History extended release lisinopril 10 mg tablet 10 mg PO DAILY 11/07/21 11/07/21 History multivitamin 1 tab PO DAILY 11/07/21 11/07/21 History paroxetine HCl 40 mg tablet 40 mg PO DAILY 11/07/21 11/07/21 History tiotropium bromide 2.5 2 inh INHALATION DAILY 11/07/21 11/07/21 History mcg/actuation mist for inhalation (Spiriva Respimat) Patient History Medical History (Updated 11/10/21 @ 14:04 by Pam Fuentes MD, PhD) Class 3 obesity COPD (chronic obstructive pulmonary disease) HTN (hypertension) Mood disorder Surgical History History of hernia surgery Hx of tonsillectomy Family History (Updated 11/07/21 @ 15:13 by Lien Hollingsworth PA-C) Mother Heart disease Father Cancer Sister Cancer Social History (Updated 11/07/21 @ 15:12 by Lien Hollingsworth PA-C) Smoking Status: Current every day smoker Tobacco Type: Cigarettes Cigarettes Per Day: 1ppd x 22 years; Do You Dip or Chew Tobacco: No; Tobacco Cessation Education Requested by Patient: No Hx Alcohol Use: Yes Alcohol type: beer Hx Substance Use: No Preferred Language: Czech Communication Ability: Effective Director Of Social Services Required: No Beliefs That Will Affect Care: None Current Living Situation: Other Current Living Situation Comment: lives with boss Other Information That Helps Us Care for You: No Feels Safe at Home: Yes Safety Concerns: Feels Safe At This Time Assistive Devices: None Review of Systems Review of Systems: All systems reviewed & are unremarkable except as noted in HPI & below Physical Exam Physical Exam: Physical Exam: Constitutional: appearance nourished, morbidly obese Ears, Nose, Mouth and Throat: mucous membranes moist, no injection and skin normal, eyes normal Cardiovascular: normal S-1 and S-2 and regular rate and rhythm Respiratory: clear to auscultation (CTA) and no rales, rhonchi or wheeze Musculoskeletal: no peripheral edema and good distal pulses Skin: no stigmata of neurocutaneous disease noted and normal and intact Eyes: extraocular muscles intact (EOMI) and pupils equal, round and reactive to light (PERRL) NEUROLOGIC EXAMINATION: Mental status: Alert and interactive Oriented to full date and location Oriented to person Speech fluent with no evidence of aphasia Cranial Nerves smile eye brow raise symmetric Reflexes: Deep tendon reflexes were absent throughout, toes are neutral Sensory: intact to light and cool touch, vibration absent at toes Coordination: finger to nose Gait/Stance: Posture lying in bed Motor: unable to test Strength: hand benefits consulting analyst biceps triceps deltoids, bilaterally 3/4, hip flex 0/5 left 4/5 right Results & Data ([facility]) Vital Signs (Past 12 Hours) Vital Signs Temp Pulse Pulse Resp BP BP Pulse Ox 11/10/21 10:54 75 24 185/100 H 93 11/10/21 09:10 176/83 H 11/10/21 07:30 36.6 C 72 16 187/104 H 94 11/09/21 23:26 162/82 H 11/09/21 23:25 37.2 C 76 18 171/88 H 90 Laboratory Results Abnormal lab results 11/09/21 11/10/21 11/10/21 Range/Units 21:24 07:23 07:23 RDW Std Deviation 46.9 H (36.4-46.3) fL MPV 10.7 H (7.4-10.4) fL ESR (0-20) mm/hr BUN/Creatinine Ratio 8.0 L 8.2 L (10-20) Glucose 112 H (70-99(Fasting)) mg/dl Total Creatine Kinase 752 H 912 H (30-223) U/L 11/10/21 Range/Units 07:23 RDW Std Deviation (36.4-46.3) fL MPV (7.4-10.4) fL ESR 62 H (0-20) mm/hr BUN/Creatinine Ratio (10-20) Glucose (70-99(Fasting)) mg/dl Total Creatine Kinase (30-223) U/L Diagnostic Findings CXR-Blunting of the left costophrenic angle may be artifactual due to underpenetration, or may represent a small pleural effusion. CT head-. No acute intracerebral pathology
[2021-11-10] MEDS ORDERED: LABETALOL HCL IV 5 MG/ML 20ML IV STA (12:12)
--- NOTE | 2021-11-10 14:04 | Nephrology Consultation ---
Date of Consultation November 10, 2021 Assessment & Plan (1) HTN (hypertension): uncontrolled HTN w/o emergency SBP 160-170s generally; no readings > 190 this admission; chemistries acceptable; not floridly overloaded on exam. pt in general has easily controlled HTN as OP and no hx of urgency or hx/issues to suggest secondary HTN. likely multifactorial >> situational/anxiety, uncontrolled pain, obligate and aggressive resuscitation w/ NS; -no evidence of EtOH withdrawal or delirium tremens -hctz and amlodipine both added today >> and OP lisinopril continued > cont current meds >goal SBP would be 130s-150s for now -daily bmp -as OP should have proteinuria quantified will follow with you while he is here History of Present Illness Reason for Consultation: HTN Mx Requesting Physician: Dr Laird Attending Physician: Jean Paul Laird MD History of Present Illness 51 y/o M whom I'm asked to evaluate for HTN management was admitted 11/07 for evaluation of BLE weakness culminating in a fall; dx'd w/ rhabdomyolysis; peak CK 1700s. PMH includes HTN x years on low dose lisinopril only and w/o hx of urgency, COPD, mood disorder, class3 obesity, active tobacco abuse; also with EtOH use daily >>3-4 beers after work 6 days/ week. He is managed as OP w/ monotherapy (lisinopril 10 mg daily dose). He tells me his chronic exertional dyspnea and chronic back pain ahve both worsened since arriving to hospital. Neurology is following and believes this is acute myositis however neuromyopathic process not excluded. Transfer to [facility] is planned for inpt EMG and mm biopsy, + / - lumbar puncture; interval TTE and monitoring of respiratory status advised. his back pain has been worse since arrival to hospital since he can't stretch easily or move about or sit in straight backed chair; c/o worse exertiona dyspnea past 2 days as well. no gross hematuria or dysuria. no edema. SBP has ranged from 140s-180s since arrival, generally 170s. he was started on hctz 12.5 mg and amlodipine 5 mg today. OP ACEI continued. Allergies Allergy/AdvReac Type Severity Reaction Status Date / Time Penicillins Allergy Severe FACE AND Verified 11/07/21 15:06 WHOLE BODY SWELLED--NEEDED 2 DOSES OF EPIPEN strawberry Allergy Intermediate ITCHY RASH Verified 11/07/21 15:06 Home Medications Medication Instructions Recorded Confirmed Type albuterol sulfate 90 mcg/actuation 2 puff INHALATION Q4 PRN 11/07/21 11/07/21 Hi story aerosol inhaler budesonide-formoterol HFA 160 2 inh INHALATION BID 11/07/21 11/07/21 History mcg-4.5 mcg/actuation aerosol inhaler (Symbicort) bupropion HCl 150 mg 24 hr tablet, 150 mg PO DAILY 11/07/21 11/07/21 History extended release lisinopril 10 mg tablet 10 mg PO DAILY 11/07/21 11/07/21 History multivitamin 1 tab PO DAILY 11/07/21 11/07/21 History paroxetine HCl 40 mg tablet 40 mg PO DAILY 11/07/21 11/07/21 History tiotropium bromide 2.5 2 inh INHALATION DAILY 11/07/21 11/07/21 History mcg/actuation mist for inhalation (Spiriva Respimat) Patient History Medical History Class 3 obesity COPD (chronic obstructive pulmonary disease) HTN (hypertension) Mood disorder Surgical History History of hernia surgery Hx of tonsillectomy Family History Mother Heart disease Father Cancer Sister Cancer Social History Smoking Status: Current every day smoker Tobacco Type: Cigarettes Cigarettes Per Day: 1ppd x 22 years; Do You Dip or Chew Tobacco: No; Tobacco Cessation Education Requested by Patient: No Hx Alcohol Use: Yes Alcohol type: beer Hx Substance Use: No Preferred Language: Sinhala Communication Ability: Effective Law Office Receptionist Required: No Beliefs That Will Affect Care: None Current Living Situation: Other Current Living Situation Comment: lives with boss Other Information That Helps Us Care for You: No Feels Safe at Home: Yes Safety Concerns: Feels Safe At This Time Assistive Devices: None Review of Systems Review of Systems: All systems reviewed & are unremarkable except as noted in HPI & below Physical Exam Constitutional: well developed, + obese and cooperative; no acute distress Eyes: EOM intact bilaterally ENMT: Ears: no external ear abnormality Nose: no external nose abnormality Mouth: + dry oral mucous membranes Neck: no nuchal rigidity Respiratory: normal respiratory effort Auscultation: + diminished lung sounds Cardiovascular: RRR, no murmur, no edema Gastrointestinal (Abdomen): Inspection/Auscultation: normal bowel sounds Percussion/Palpation: abdomen soft; abdomen nontender Musculoskeletal: Extremities: strength 5/5 throughout Skin: no rashes, warm and dry Neurologic: valdez, fluent speech, no tremor Psychiatric: Orientation: oriented x 3 Speech: normal rate/rhythm/volume of speech Results & Data ([facility]) Vital Signs (Past 12 Hours) Vital Signs Temp Pulse Pulse Resp BP BP Pulse Ox 11/10/21 11:47 179/95 H 11/10/21 10:54 75 24 185/100 H 93 11/10/21 09:10 176/83 H 11/10/21 07:30 36.6 C 72 16 187/104 H 94 Laboratory Results 11/10/21 07:23 11/10/21 07:23 CK ranges/trends reviewed; phos, K wnl UA reviewed; no blood 1+ dipstick protein Diagnostic Findings cxr, head ct both w/o acute process apart from small pleural effusion -no LVH on ECG but evidence of past age undetermined septal infarct
--- NOTE | 2021-11-10 14:04 | Electrocardiogram Report ---
Test Reason : Blood Pressure : / mmHG Vent. Rate : 074 BPM Atrial Rate : 074 BPM P-R Int : 138 ms QRS Dur : 108 ms QT Int : 408 ms P-R-T Axes : 071 024 015 degrees QTc Int : 452 ms Possible Left atrial enlargement Incomplete right bundle branch block Septal infarct , age undetermined Abnormal ECG When compared with ECG of 07-NOV-2021 11:31, Criteria for Lateral infarct are no longer Present T wave inversion less evident in Inferior leads Confirmed by Beck Garcia ([id number]) on 11/10/2021 2:04:07 PM Referred By: REFERRED SELF Confirmed By:Beck Garcia
--- NOTE | 2021-11-10 17:46 | Hospitalist Progress Note ---
Date of Service November 10, 2021 Assessment & Plan (1) Rhabdomyolysis: Plan: 51 y/o M with PMH of COPD, mood disorder, HTN presented to ER 11/07 with c/o myalgias. 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 On the day of arrival, he fell hitting head. Pt denies LOC, drug use. He is being managed for the following: (1) Rhabdomyolysis: #. Generalized body weakness, progressive At presentation, vitals stable Admitting CT Head and CXR w/ no acute findings. CPK 1723 at admission, trended down w/ ivf but started trending up upon dcing ivf, hence on ivf again UDS 11/08, negative. Pt still w/ muscle pain, reports worsening weakness, appears breathing heavy [no accessory muscle use], lungs exam CTA, CXR with no acute lung findings. Pt urinating ok, eating less Neuro evaluated: Acute myositis versus neuromyopathic process. Patient needs EMG and acute muscle biopsy. Recommends transfer. Contacted with [facility] transfer line, patient accepted, pending bed availability. Recommendation is to monitor respiratory status [NIF and VC] every 6 hour, possibility for ICU transfer if patient becomes weak respiratory mcrae. Transfer to [facility] telemetry, discussed with dean for student affairs Dr. Abdi. ESR, SONALI, RF, trypsin and trichinellosis titer sent. (2) HTN (hypertension): Plan: Running high, could be IVF induced vs acute stress from muscle pain. Continued with home lisinopril, added amlodipine and hydrochlorothiazide, as needed hydralazine and labetalol Blood pressure still not controlled, nephrology consult. (3) COPD (chronic obstructive pulmonary disease): Plan: No signs exacerbation Continue home inhalers (4) Mood disorder: Plan: Stable Continue home meds DVT Prophylaxis SCDs Full Code Follows with Ish Riojas PA-C for routine care Disposition: Accepted at [facility] for transfer, pending bed availability. Paperwork done. Admission and Anticipated Discharge Date Admission Date: November 07, 2021 Subjective Patient seen and examined at bedside as a follow-up of rhabdomyolysis and uncontrolled hypertension. Patient was lying in bed, on room air, NAD, no new acute events overnight. Patient reports he is getting more weaker, maintaining saturation on room air. Appears breathing heavy but no use of accessory muscle. Patient denies headache or dizziness or chest pain or palpitation. Patient reports eating less. Patient has not moved his bowel since last 2 days. Patient reports making urine okay. Physical Exam Physical Exam: GENERAL: Alert and oriented x3. NAD, on RA. Morbidly obese. HEENT: No pallor, no icterus. Pupils equal, round and reactive to light. Oral mucosa moist. NECK: No JVD, no neck masses. HEART: S1 and S2 heard. Regular rate and rhythm. No murmur, no gallop. RESPIRATORY SYSTEM: Normal AP diameter. No accessory muscle use. No wheezing, no crackles. ABDOMEN: Soft, bowel sounds present, nontender, no distention. CENTRAL NERVOUS SYSTEM: No facial droop. Speech is clear. Obeys simple commands. Moves extremities. weak carrier associate. EXTREMITIES: trace ble edema, BLE chronic skin changes, no erythema seen. Results & Data Results & Data ([facility]) Vital Signs (Past 12 Hours) Vital Signs Temp Pulse Pulse Pulse Resp BP BP 11/10/21 15:44 37.4 C 83 22 176/93 H 11/10/21 15:18 81 11/10/21 14:42 37.6 C H 84 24 173/97 H 11/10/21 14:02 142/81 H 11/10/21 11:47 179/95 H 11/10/21 10:54 75 24 185/100 H 11/10/21 09:10 176/83 H 11/10/21 07:30 36.6 C 72 16 187/104 H Pulse Ox 11/10/21 15:44 93 11/10/21 15:18 11/10/21 14:42 93 11/10/21 14:02 11/10/21 11:47 11/10/21 10:54 93 11/10/21 09:10 11/10/21 07:30 94
[2021-11-10] MEDS ORDERED: cloNIDine HCL 0.1 MG TAB PO ONE (21:00)
[2021-11-10] MEDS ORDERED: NITROGLYCERIN 2% OINTMENT 30GM TUBE EXT SCH (22:15)
[2021-11-10] MEDS: LABETALOL HCL IV 5 MG/ML 20ML IV PRN (22:36)
[2021-11-11] MEDS: MoRPHine SULFATE 4 MG/ML 1 ML CARP\\VIAL IV PRN ×2 (02:08→06:10)
[2021-11-11] MEDS: hydrALAZINE HCL 20 MG/ML VIAL IV PRN (03:11)
[2021-11-11 06:45] LABS: BUN Creatinine Ratio 15.3 (10-20); Creatinine Clr Calc Pharmacy 192.9 ml/min; Est GFR (African American) 124.3 ml/min; Est GFR (Non-African American) 107.3 ml/min; Magnesium 1.9 mg/dl (1.7-2.4); Phosphorus 4.6 mg/dl (2.5-4.9); Potassium 4.3 mmol/L (3.5-5.1)
[2021-11-11] MEDS: amLODIPine BESYLATE 5 MG TAB PO SCH (07:35)
[2021-11-11] MEDS: LABETALOL HCL IV 5 MG/ML 20ML IV PRN (07:35)
--- NOTE | 2021-11-11 08:01 | Nephrology Progress Note ---
Date of Service November 11, 2021 Assessment & Plan (1) HTN (hypertension): Plan: uncontrolled HTN w/o emergency SBP 160-170s generally; no readings > 190 this admission; chemistries acceptable; not floridly overloaded on exam. pt in general has easily controlled HTN as OP and no hx of urgency or hx/issues to suggest secondary HTN. likely multifactorial >> situational/anxiety, uncontrolled pain, obligate and aggressive resuscitation w/ NS; >stopped NS this AM >> w/ recheck of CK for noon -no evidence of EtOH withdrawal or delirium tremens -hctz and amlodipine both added yesterday >> and OP lisinopril continued > cont CCB; see med changes below >goal SBP would be 130s-150s for now -daily bmp -as OP should have proteinuria quantified (2) Hyponatremia: Plan: intermittent but w/ abrupt change past 24 hrs coincident with aggressive resuscitation and with starting hctz -hctz stopped -increased lisinopril to 20 mg bid -repeat bmp, ur/se [place], rd Scarlett ordered for noon Admission and Anticipated Discharge Date Admission Date: November 07, 2021 Physical Exam Constitutional: well developed, + obese and cooperative; no acute distress Eyes: EOM intact bilaterally ENMT: Ears: no external ear abnormality Nose: no external nose abnormality Mouth: + dry oral mucous membranes Neck: no nuchal rigidity Respiratory: normal respiratory effort Auscultation: + diminished lung sounds Cardiovascular: RRR, no murmur, no edema Gastrointestinal (Abdomen): Inspection/Auscultation: normal bowel sounds Percussion/Palpation: abdomen soft; abdomen nontender Musculoskeletal: Extremities: strength 5/5 throughout Skin: no rashes, warm and dry Psychiatric: Orientation: oriented x 3 Speech: normal rate/rhythm/volume of speech Results & Data ([facility]) Vital Signs (Past 12 Hours) Vital Signs Temp Pulse Pulse Resp BP BP Pulse Ox 11/11/21 07:02 85 20 95 11/11/21 03:36 140/84 11/11/21 02:39 36.7 C 72 18 170/102 H 178/99 H 94 11/11/21 01:10 77 11/10/21 23:17 36.7 C 77 18 159/89 H 94 11/10/21 22:34 83 11/10/21 21:59 186/108 H 11/10/21 20:55 189/119 H 183/101 H 11/10/21 20:29 189/105 H 175/100 H Laboratory Results 11/10/21 07:23 11/11/21 05:59
[2021-11-11] MEDS ORDERED: lisinopril 20 MG TAB PO SCH (09:00)
[2021-11-11 10:42] LABS: Anti Nuclear Antibody Screen NEGATIVE (NEGATIVE); Rheumatoid Factor <14 IU/mL (<14)
--- NOTE | 2021-11-11 13:59 | Discharge Summary ---
Date of Service November 11, 2021 Admission HPI Per Admitting Provider Patient is 51 y/o M with PMH COPD, mood disorder, HTN presented to ER with c/o myalgias. Was on vacation in [place] and came back to work past couple of days. Works in restaurant. Past couple of days very hot and busy and started having diffuse myalgias, muscle weakness. Today increased weakness and fell hitting head. Denies LOC. Denies fever/chills, diaphoresis, N/V/D/C, AL, dizziness, syncope, vision changes, neck pain, CP, SOB, orthopnea, palpitations, cough, sore throat, choking, otalgia, rhinorrhea, abdominal pain, paresthesias,extremity edema, rashes, urinary symptoms. In ER CPK elevated and was given IVF. Admission Exam Per Admitting Provider General: Obese, no acute distress and not ill appearing Eyes: PERRL, conjunctivae normal, not pale, anicteric sclerae, EOM intact bilaterally ENMT: External ear and nose normal, oropharynx normal Neck: Normal visual inspection, no tracheal deviation, no swelling noted Respiratory: Normal respiratory effort, no respiratory distress, lungs clear to auscultation, no crackles and no wheezes Cardiovascular: RRR S1 S2 Gastrointestinal (Abdomen): Abdomen is not distended, soft, non-tender to palpation, no guarding, no palpable hepatosplenomegaly, normal bowel sounds Musculoskeletal: +pedal edema, varicose veins Neurologic: Alert and oriented x 3, No focal weakness, sensation grossly intact Psychiatric: Alert and oriented x 3, euthymic affect Principal Diagnosis Generalized muscle weakness, progressive. Discharge Exam n/a (pt left early in AM). for latest exam refer to yesterday's progress note. Discharge Data Allergies Allergy/AdvReac Type Severity Reaction Status Date / Time Penicillins Allergy Severe FACE AND Verified 11/07/21 15:06 WHOLE BODY SWELLED--NEEDED 2 DOSES OF EPIPEN strawberry Allergy Intermediate ITCHY RASH Verified 11/07/21 15:06 Consultations 11/07/21 13:51 ED Decision to Admit Stat 11/10/21 08:00 Consult Neurology Routine 11/10/21 12:14 Consult Nephrology Routine 11/10/21 21:35 Burn CD for patient Stat Ordered Studies 11/07/21 12:12 CT head/brain wo con Stat Hospital Course (1) Rhabdomyolysis: 51 y/o M with PMH of COPD, mood disorder, HTN presented to ER 11/07 with c/o myalgias. 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 On the day of arrival, he fell hitting head. Pt denies LOC, drug use. He was managed for the following: (1) Rhabdomyolysis: #. Generalized body weakness, progressive At presentation, vitals stable Admitting CT Head and CXR w/ no acute findings. CPK 1723 at admission, trended down w/ ivf but started trending up upon dcing ivf, hence on ivf again UDS 11/08, negative. Pt still w/ muscle pain, reports worsening weakness, appears breathing heavy [no accessory muscle use], lungs exam CTA, CXR with no acute lung findings. Pt urinating ok, eating less Neuro evaluated 11/10: Acute myositis versus neuromyopathic process. Patient needs EMG and acute muscle biopsy. Recommends transfer. Contacted with [facility] transfer line 11/10, patient accepted, pending bed availability. Recommendation is to monitor respiratory status [NIF and VC] every 6 hour, possibility for ICU transfer if patient becomes weak respiratory mcrae. On med telemetry, discussed with commercial door installer Dr. Abdi 11/10. ESR, SONALI, RF, trypsin and trichinellosis titer sent. Pt discharged to [facility]. (2) HTN (hypertension): Plan: Running high, could be IVF induced vs acute stress from muscle pain. Continued with home lisinopril, added amlodipine and hydrochlorothiazide, as needed hydralazine and labetalol Blood pressure still not controlled, nephrology on board. (3) COPD (chronic obstructive pulmonary disease): Plan: No signs exacerbation Continue home inhalers (4) Mood disorder: Plan: Stable Continue home meds DVT Prophylaxis SCDs Full Code Follows with Ish Riojas PA-C for routine care Disposition: to [facility]. Total Time Total Time Spent Total Time Spent (In Minutes): 15 Discharge Plan Discharge Items Patient Disposition: Transfer Acute Care Hospital Reason For Visit: RHABDO Discharge Diagnosis: Generalized muscle weakness, progressive. Condition on Discharge: Good Activity: Resume your previous activity Non-emergency contact: Primary Care Provider Call non-emergency contact if: you have any medication questions Follow-up/Referrals: Ish Riojas PA-C [Primary Care Provider] - Diet: Regular Addtl Attending Provider Instructions: Per tertiary care recommendation. Following medications were used while inpatient. For comparison, patient's home medications are continued in discharge med rec. Date of Service: November 10, 2021 Current Inpatient Medications Acetaminophen (Acetaminophen 325 Mg Tab) 650 mg PO Q4H PRN PRN Reason: Pain or Fever Stop: 12/07/21 17:46 Last Admin: 11/09/21 23:34 Dose: 650 mg Documented by: Albuterol (Albuterol Hfa 8 Gm Inhaler) 2 puffs INH Q4R PRN PRN Reason: Shortness Of Breath Or Wheezin Stop: 12/07/21 17:46 Albuterol (Albut/Ipratrop 3mg/0.5mg Neb 3 Ml Vial) 3 ml NEB QIDR PRN; Protocol PRN Reason: Shortness Of Breath Or Wheezing Stop: 12/09/21 06:59 Last Admin: 11/09/21 19:14 Dose: 3 ml Documented by: Amlodipine Besylate (Amlodipine Besylate 5 Mg Tab) 5 mg PO QAM EDWINA Stop: 12/09/21 09:29 Last Admin: 11/10/21 07:20 Dose: 5 mg Documented by: Bupropion HCl (Bupropion Xl 150 Mg Tabcr) 150 mg PO DAILY EDWINA Stop: 12/08/21 08:59 Last Admin: 11/10/21 09:20 Dose: 150 mg Documented by: Fluticasone/Vilanterol (Fluticasone/Vilanterol 100/25mcg 14 Puffs/Inhaler) 1 puffs INH DAILY EDWINA; Protocol Stop: 12/08/21 08:59 Last Admin: 11/10/21 09:21 Dose: 1 puffs Documented by: Hydralazine HCl (Hydralazine Hcl 20 Mg/Ml Vial) 10 mg IV Q6H PRN PRN Reason: Hypertension Stop: 12/08/21 15:14 Last Admin: 11/10/21 10:56 Dose: 10 mg Documented by: Hydrochlorothiazide (Hydrochlorothiazide 25 Mg Tab) 12.5 mg PO QAM EDWINA Stop: 12/10/21 08:59 Last Admin: 11/10/21 09:34 Dose: 12.5 mg Documented by: Sodium Chloride (Nss 1000ml) 1,000 mls @ 80 mls/hr IV .[id number] [facility] Stop: 11/11/21 09:44 Last Admin: 11/10/21 09:16 Dose: 80 mls/hr Documented by: Labetalol HCl (Labetalol Hcl Iv 5 Mg/Ml 20ml) 10 mg IV Q4H PRN PRN Reason: hypertension Stop: 12/10/21 12:11 Lisinopril (Lisinopril 10 Mg Tab) 10 mg PO DAILY [facility] Stop: 12/08/21 08:59 Last Admin: 11/10/21 07:21 Dose: 10 mg Documented by: Morphine Sulfate (Morphine Sulfate 4 Mg/Ml 1 Ml Carp\Vial) 3 mg IV Q4H PRN PRN Reason: Pain Stop: 11/24/21 00:27 Last Admin: 11/10/21 17:27 Dose: 3 mg Documented by: Multivitamins (Multivitamin Tab) 1 tab PO DAILY [facility] Stop: 12/08/21 08:59 Last Admin: 11/10/21 09:20 Dose: 1 tab Documented by: Ondansetron HCl (Ondansetron Inj 2 Mg/Ml 2 Ml Vial) 4 mg IV Q6H PRN PRN Reason: Nausea Stop: 12/07/21 17:46 Last Admin: 11/10/21 00:58 Dose: 4 mg Documented by: Paroxetine HCl (Paroxetine Hcl 20 Mg Tab) 40 mg PO DAILY [facility] Stop: 12/08/21 08:59 Last Admin: 11/10/21 09:19 Dose: 40 mg Documented by: Polyethylene Glycol (Polyethylene (Miralax) 17 Gm Pack) 17 gm PO DAILY PRN PRN Reason: Constipation Stop: 12/07/21 17:46 Umeclidinium [place] (Umeclidinium [place] 62.5mcg/Blister 7 Puffs/Inhaler) 1 puffs INH DAILY [facility]; Protocol Stop: 12/08/21 08:59 Last Admin: 11/10/21 09:21 Dose: 1 puffs Documented by: Pending Studies at Discharge: Yes Stand-Alone Forms: [facility] Skilled Items Patient informed of condition?: Yes DNR: Yes Discharge Level of Care: Other Communicable Disease: No Discharge Prognosis: Deteriorating Lines: Peripheral IV Urinary Catheter: Yes Medications and DC Order Prescriptions: Continued multivitamin Tablet 1 tab PO DAILY RF: 0 lisinopril 10 mg tablet 10 mg PO DAILY RF: 0 albuterol sulfate 90 mcg/actuation HFA aerosol inhaler 2 puff INHALATION Q4 PRN (Reason: Shortness Of Breath Or Wheezing) RF: 0 paroxetine HCl 40 mg tablet 40 mg PO DAILY RF: 0 bupropion HCl 150 mg tablet extended release 24 hr 150 mg PO DAILY RF: 0 budesonide-formoterol [Symbicort] 160-4.5 mcg/actuation HFA aerosol inhaler 2 inh INHALATION BID RF: 0 Spiriva Respimat 2.5 mcg/actuation mist 2 inh INHALATION DAILY RF: 0 Discharge Orders: Discharge Order (Routine); Ordered 11/11/21 Ordered By: Melvin Brito Admission Data Admit Date/Time: 11/07/21 14:42 Attending Provider: Jean Paul Laird Admit Provider: Leonie Sandra I. Primary Care Provider: Ish Riojas Other Providers: Leonie Sandra I. ; Carlota Powell ; Pam Fuentes Other Interventions: Discharge Summary Assessment (RN) Last Done: 11/11/21 07:30
== END 2021-11-11 07:50 | disposition short-term general hospital (02) | DRG 558 ==
LOC: ED 11:20 → SUATTDRO 14:42 → EDINP 14:42 → 3N 11-08 01:34 → 2S 11-10 13:16